=== PATIENT | female | born 1945 | race Hispanic/Latino ===

== ENCOUNTER → 2022-07-04 | Outpatient (CLI) | payer MEDICARE, OTHER | END | disposition home or self-care (01) | LOC: RAH 15:36 | PROVIDERS: ATTEND Internal Medicine | DX: I10 Essential (primary) hypertension (principal); M47.815 Spondylosis without myelopathy or radiculopathy, thoracolumbar region | CPT/HCPCS: 71046 ==

== ENCOUNTER 2022-09-07 22:46 | Observation (INO) | payer MEDICARE, OTHER ==
[~2022-09-07] VITALS: Ht 154.9 cm; Wt 59.5 kg
[2022-09-08 03:20] VITALS: BP 150/75
[2022-09-08] MEDS ORDERED: LISI20TA24 PO (03:49)
[2022-09-08] MEDS ORDERED: ONDANSETRON 4MG INJ IVP PRN (05:00)
[2022-09-08] MEDS: CEFTRIAXONE 1G VIAL IVP SCH (05:33)
[2022-09-08] MEDS: ACETAMINOPHEN 325 MG TAB PO PRN ×2 (06:27→20:11)
[2022-09-08 06:35] LABS: MEAN CORPUSCULAR HEMOGLOBIN 30.2 pg (27.0-33.0); MEAN CORPUSCULAR HGB CONC 35.4 g/dL (32.0-36.0); MEAN CORPUSCULAR VOLUME 85.2 fL (79-99); RED BLOOD CELL COUNT(AUTO) 4.11 MIL/uL (4.00-5.50); RED CELL DISTRIBUTION WIDTH 11.4 % (11.0-15.5)
[2022-09-08 06:49] LABS: CREATININE 0.7 mg/dL (0.5-1.5); POTASSIUM 3.9 mmol/L (3.5-5.1)
[2022-09-08] MEDS ORDERED: PAXLOVID MISC SCH (07:00)
[2022-09-08 08:00] VITALS: BP 122/58
[2022-09-08 11:32] VITALS: BP 114/58
[2022-09-08] MEDS ORDERED: 0.9%NACL 1000ML 1,000 ML IV SCH (13:30)
[2022-09-08 16:00] VITALS: BP 142/58
[2022-09-08 19:52] VITALS: BP 132/72
[2022-09-09 00:18] VITALS: BP 128/65
[2022-09-09 04:15] VITALS: BP 137/68
[2022-09-09] MEDS: CEFTRIAXONE 1G VIAL IVP SCH (05:00)
[2022-09-09 08:00] VITALS: BP 149/72
[2022-09-09 11:54] VITALS: BP 141/78
== END 2022-09-09 12:00 | disposition home or self-care (01) ==
LOC: INTOOBSV 09-08 02:57 → 2AH 09-08 02:57
PROVIDERS: ADMIT Internal Medicine; ATTEND Internal Medicine
DX: U07.1 COVID-19 (principal); E87.1 Hypo-osmolality and hyponatremia; E87.8 Other disorders of electrolyte and fluid balance, not elsewhere classified; E86.0 Dehydration; Z90.710 Acquired absence of both cervix and uterus; Z79.899 Other long term (current) drug therapy
CPT/HCPCS: 96374; 71045; 80048; 85027; 36415 ×2; 84295 ×2; 96361; 96376; J7030 ×2; J0696 ×2; G0378